=== PATIENT | female | born 1980 | race Caucasian/White ===

== ENCOUNTER 2023-01-31 14:27 | Emergency (ER) | payer OTHER, SELFPAY ==
--- NOTE | ~2023-01-31 | CT_ITS ---
EXAMINATION: CT thoracic spine wo con DATE: 01/31/2023 16:21 INDICATION: Upper back pain TECHNIQUE: Computed tomography (CT) of the thoracic spine was performed without intravenous contrast. The dose-length product (DLP) was 451.09 mGy-cm. Iterative reconstruction was used. COMPARISON: None FINDINGS: There is subtle irregularity in the anterior superior endplate of the T4 vertebral body. Th e vertebral body heights and alignment are maintained. The intervertebral disc spaces are normal. The prevertebral soft tissues are normal. IMPRESSION: 1. Subtle, age indeterminate anterior/superior endplate fracture of T4. Reviewed, dictated and finalized at location F. DRAWING MACHINE TENDER
--- NOTE | ~2023-01-31 | CT_ITS ---
EXAMINATION: CT brain wo con INDICATION: Head injury COMPARISON: None TECHNIQUE: Standard unenhanced head CT. The dose-length product (DLP) was 605.33 mGy-cm. The mA was a djusted according to patient size. Iterative reconstruction technique was employed. FINDINGS: There is no intracranial hemorrhage, acute infarction, or abnormal mass lesion. The ventric les are normal. There is no abnormal mass effect or midline shift. The de la vega-white matter differentiat ion is normal. The basal cisterns are patent. The orbits are normal. The paranasal sinuses, mastoids and calvarium are normal. IMPRESSION: 1. No acute intracranial abnormality. Reviewed, dictated and finalized at location F. T METAL CONTRACTOR
--- NOTE | ~2023-01-31 | CT_ITS ---
EXAMINATION: CT cervical spine wo con DATE: 01/31/2023 16:21 INDICATION: Neck and upper back pain TECHNIQUE: Computed tomography (CT) of the cervical spine was performed without intravenous contrast. The dose-length product (DLP) was 226.70 mGy-cm. Automated exposure control and iterative reconstruc tion technique were employed. COMPARISON: None FINDINGS: No fracture, dislocation, or subluxation. The vertebral body heights, alignment, and interv ertebral disc spaces are normal. The paravertebral soft tissues are unremarkable. The odontoid proces s is intact. IMPRESSION: 1. No acute osseous abnormality. Reviewed, dictated and finalized at location F. ING MACHINE CAN FEEDER
[2023-01-31 14:30] VITALS: BP 136/72; PULSE 55; RESP 18; TEMP 36.4; O2SAT 100
--- NOTE | 2023-01-31 17:14 | ED.FALL ---
HPI - Fall General Chief Complaint: Fall Stated Complaint: fall/back / hi Time Seen by Provider: 01/31/23 17:09 Source: patient Mode of arrival: ambulatory Limitations: no limitations History of Present Illness HPI Narrative: Patient is a 42 y/o female who presents to the ED with c/o fall. Patient reports she was attempting to run into the garage to grab something before leaving her house. Patient had a hat on and did not see the garage door closing down. She ran into the door, hitting her head and face and falling backwards, landing flat on her back with her back against the concrete ledge between her driveway and garage. Patient showed me a video of this on her home camera. She denied any LOC. She was able to get up off the ground after the fall. She complains of pain to her mid upper back between her shoulder blades. She denies any dizziness, lightheadedness, vision changes, nausea, vomiting, numbness, abdominal pain, chest pain, difficulty breathing. Patient took ibuprofen at 12pm. Related Data Allergies Allergy/AdvReac Type Severity Reaction Status Date / Time No Known Allergies Allergy Verified 01/31/23 18:24 Review of Systems Review of Systems: CONSTITUTIONAL: Denies fever, chills, or sweats. EYES: Denies visual changes. CARDIOVASCULAR: Denies chest pain. RESPIRATORY: Denies dyspnea. GASTROINTESTINAL: Denies abdominal pain, nausea, vomiting. MUSCULOSKELETAL: See HPI. NEUROLOGIC: See HPI. All systems reviewed & are unremarkable except as noted in HPI and below PMFSH Past Medical History Medical History Anxiety Hypothyroidism Surgical History Surgical History No pertinent past surgical history Social History Social History Smoking status: Never smoker Exam Narrative: GENERAL: Well appearing, well-nourished, non-toxic, in no acute distress. HEAD: Normocephalic, atraumatic. No contusions or wounds. EYES: PERRLA/EOMI, conjunctiva clear. NECK: Supple. No adenopathy, no masses. No significant midline or paraspinal muscle tenderness. RESPIRATORY: Airway patent, respirations nonlabored. Clear to auscultation bilaterally, no rales, rhonchi, wheezing. No splinting. CARDIOVASCULAR: Regular rate and rhythm without murmurs, rubs, or gallops. Peripheral pulses 2+ and equal bilaterally. ABDOMINAL: Soft, nontender, nondistended, no hepatosplenomegaly. Normoactive BS. MUSCULOSKELETAL: Moves all extremities. Strength/ROM intact without gross deformities. No tenderness along ribs. No significant lumbar midline spinal tenderness. Tenderness to palpation throughout midline thoracic spine and region from approximately T2-T6, between shoulder blades. No palpable deformities or step-offs. SKIN: Warm, dry, normal color. No rashes. NEURO: A&O X3. Speech clear. Cranial nerves II-XII grossly intact. Steady gait. No ataxic movements. No focal deficits. PSYCHIATRIC: Appropriate mood and affect. Normal interaction. Course Vital Signs Vital signs: Vital Signs Temperature 97.6 F 01/31/23 14:30 Pulse Rate 55 L 01/31/23 14:30 Respiratory Rate 18 01/31/23 14:30 Blood Pressure 136/72 01/31/23 14:30 Pulse Oximetry 100 01/31/23 14:30 Oxygen Delivery Room Air 01/31/23 14:30 Temperature 97.6 F 01/31/23 14:30 Pulse Rate 55 L 01/31/23 14:30 Respiratory Rate 18 01/31/23 14:30 Blood Pressure 136/72 01/31/23 14:30 Pulse Oximetry 100 01/31/23 14:30 Oxygen Delivery Room Air 01/31/23 14:30 MDM - Fall MDM Narrative Medical decision making narrative: Patient presented to ED with report of running into garage floor, head injury, back injury. Pain between shoulder blades. Patient's vital stable upon arrival. Neurologically intact. No focal deficits. Able to move all extremities. Sensation intact. CT scans of head
[2023-01-31] MEDS: HYDROcodone/acetaminophen (*CRX) 5-325 MG TABLET 1 TAB PO (17:51)
[2023-01-31] MEDS: KETOROLAC (*BKC) 60 MG/2 ML VIAL IM (17:51)
== END 2023-01-31 19:00 | disposition home or self-care (01) ==
PROVIDERS: Emergency Provider Physician Assistant; PCP Family Medicine
DX: S22.048A Other fracture of fourth thoracic vertebra, initial encounter for closed fracture (principal); S09.90XA Unspecified injury of head, initial encounter; F41.9 Anxiety disorder, unspecified; E03.9 Hypothyroidism, unspecified; W18.09XA Striking against other object with subsequent fall, initial encounter
CPT/HCPCS: 70450; 72125; 72128; 81025; 99284; A9270; J1885

== ENCOUNTER 2023-03-19 14:12 | Outpatient (CLI) | payer OTHER, SELFPAY ==
--- NOTE | ~2023-03-19 | MM_ITS ---
EXAMINATION: MM scrn nathan implant BI w shanthi HISTORY: Screening mammogram TECHNIQUE: Craniocaudal and mediolateral oblique 3-D tomosynthesis images with implant displacement a nd synthetic 2-D images were generated. Craniocaudal and mediolateral oblique views of the breasts wi thout implant displacement were obtained using full field digital mammography. CAD analysis was submi tted and interpreted. COMPARISON: None, baseline BREAST PARENCHYMAL COMPOSITION: The breasts are heterogeneously dense, which may obscure small masses . FINDINGS: There is no evidence of suspicious mass, calcification, or architectural distortion to sugg est malignancy in either breast. IMPRESSION: 1. No mammographic evidence of malignancy. 2. Recommend routine screening mammography in one year. BI-RADS Category 1: Negative Reviewed, dictated and finalized at location A.
== END 2023-03-19 14:13 | disposition home or self-care (01) ==
PROVIDERS: PCP Family Medicine; Visit Provider Obstetrics & Gynecology
DX: Z12.31 Encounter for screening mammogram for malignant neoplasm of breast (principal)
CPT/HCPCS: 77063; 77067

== ENCOUNTER 2024-10-20 01:25 | Day surgery (SDC) | payer OTHER, SELFPAY ==
--- NOTE | 2024-10-12 18:25 | PC.NURSE ---
Report to the Outpatient Waiting Room, entrance under the green pavilion located off [facility], at time 1130 on date 10/20/24. Planned Procedure Time: 1330.? Time changes happen often and if your time is changed the preop area will call you the afternoon before. - You and your visitor will be asked to self-screen and do not enter if you have any COVID symptoms. Please call surgeon if you need to reschedule. - A mask is optional within the hospital at this time. Patients may have clear liquids (water, carbonated beverages, clear teas, apple juice) until 3 hours prior to surgery with a maximum of 20 ounces. - No food from midnight until time of surgery and no smoking. This includes no chewing gum, candy or mints. - Infants may have breast milk until 4 hours before surgery, infant formula 6 hours prior to surgery. - Children will be allowed to drink immediately following surgery.? If applicable, please bring a bottle or sippy cup to assist with drinking. Juice, water, soda, and popsicles are readily available.? For infants on formula, please bring formula the day of surgery.? Pacifiers are allowed. Take only the following medications with a SIP of water on the morning of surgery: bupropion, levothyroxine DO NOT STOP ANY OF YOUR OTHER PRESCRIPTION MEDICATIONS PRIOR TO SURGERY EXCEPT THE FOLLOWING Medications to discontinue per physician vitamins and supplements Date to take last dose 10/17/24 Please no make-up, nail nicaraguan, hairspray, perfume, deodorant, or body powder the day of surgery.? No jewelry (including any body piercings) or valuables the day of surgery, leave them at home.? Please take a shower or bath the night before, or the morning of, surgery with an antibacterial soap.? Wear comfortable, loose fitting clothing.? Children are encouraged to wear pajamas. - Jewelry must be removed prior to entering the operating room.? Rings and piercings that are not removed may be cut off. - The hospital will not accept responsibility for valuables.? - Please leave all valuables, including medications, at home the day of surgery. If you are going home after surgery, a licensed refrigerated company driver must drive you home.? - NO public transportation without another adult if you receive anesthesia. - We recommend that an adult stay with you for 24 hours following discharge. - We also recommend that you do not drive, make important decision, drink alcoholic beverages, or take any drugs that were not prescribed by your health care provider for at least 24 hours after your discharge time. For Pediatric surgeries, we recommend two adults accompany the child home. Follow any additional instructions given to you from your surgeon. Telephone instructions given to Patient- Catalina Foley and asked if any additional questions and then verbalized understanding. Patient advised to call surgeon office or pre surgery nurse liaison [phone] if any additional questions.
[2024-10-12 18:33] VITALS: BMI 25.1
--- NOTE | 2024-10-18 06:30 | PM.IMHP ---
H&P: HPI History of Present Illness Date/Time: 10/18/24 06:30 Chief Complaint: Be bleeding/dyspareunia/dysmenorrhea/enlarged uterus Narrative: 43-year-old multiparous female for hysterectomy bilateral salpingectomy secondary to heavy bleeding dysmenorrhea pelvic pain and enlarged uterus. Risks and benefits reviewed including not exclusive of , aspiration, bleeding, transfusion, perforation injury to bowel, bladder, ureters, or other internal organs with need for laparotomy. She received the ACOG handout hysterectomy. She all questions answered. She asked to proceed Review of Systems Review of Systems: CONSTITUTIONAL: Denies fever, chills, or sweats. EYES: Denies visual changes. CARDIOVASCULAR: Denies chest pain. RESPIRATORY: Denies dyspnea. GASTROINTESTINAL: Denies abdominal pain, nausea, vomiting. MUSCULOSKELETAL: See HPI. NEUROLOGIC: See HPI. All systems reviewed & are unremarkable except as noted in HPI and below PMFSH Past Medical History Medical History Anxiety Hypothyroidism Surgical History Surgical History No pertinent past surgical history Social History Social History Smoking status: Never smoker Alcohol intake: current Drinks per week: 4 Substance use: current Substance use type: marijuana Other substance usage details: gummies Lack of Transportation: No Lack of Food: Never True Current Housing: I Have Housing Concerned About Future Housing: No Difficulty Paying Gas/Electric Bills: No Difficulty Paying for Meds: No Currently Unemployed: No Education: Bachelor's Degree Difficulty w/ Childcare or Family Care: No Living arrangements: with family Occupation/Education: occupation Gender identity (if verbalized by the patient): Female Sexual Orientation (if Verbalized by the Patient): Straight or Heterosexual Spiritual care concerns: No Meds Home Medications and Allergies Home Medications Medication Instructions Recorded Confirmed Type levothyroxine 75 mcg tablet 75 mcg PO DAILY 06/17/23 10/12/24 History Daily Multivitamin 1 tab-cap PO DAILY 10/12/24 10/12/24 History bupropion HCl 150 mg 24 hr tablet, 150 mg PO DAILY 10/12/24 10/12/24 History extended release magnesium L-lactate 84 mg 168 mg PO BID 10/12/24 10/12/24 History tablet,extended release Allergies Allergy/AdvReac Type Severity Reaction Status Date / Time No Known Allergies Allergy Verified 10/12/24 18:13 Exam Const: General: cooperative, healthy appearing and comfortable Nutritional Appearance: average body habitus Orientation/consciousness: oriented to person, oriented to place and oriented to time HENMT: Head: normal to inspection Resp: Effort & Inspection: normal respiratory effort Cardio: Rate: regular rate Rhythm: regular rhythm Heart sounds: S1 normal heart sound present and S2 normal heart sound present GI: Inspection: normal to inspection : External Female Exam: normal external appearance Speculum Exam - Vagina: normal appearance of the vagina Speculum Exam - Cervix: normal appearance of the cervix (Second-degree prolapse) Bimanual exam- vagina & uterus: enlarged and Uterine tenderness Bimanual Exam- Adnexa, other: normal adnexae Assessment and Plan Assessment and plan (1) Pelvic pain: Code(s): R10.2 - Pelvic and perineal pain Status: Acute (2) Excessive bleeding: Code(s): R58 - Hemorrhage, not elsewhere classified Status: Acute (3) Enlarged uterus: Code(s): N85.2 - Hypertrophy of uterus Status: Acute Assessment and Plan: Proceed with robotic total vaginal hysterectomy and bilateral salpingectomy
[2024-10-20] VITALS (10 sets, daily range): BP systolic 105–134; BP diastolic 64–86; PULSE 60–88; RESP 12–20; TEMP 36.1–37.1; O2SAT 94–100; BMI 25.2
--- NOTE | 2024-10-20 06:50 | WPDHPUPDATE1 ---
History and Physical Update Update Date/Time: 10/20/24 06:50 History and Physical has been reviewed, including an updated exam of the patient. There are NO changes in the patient's condition. Risks, benefits, and alternatives have been discussed and questions answered. Patient agrees to proceed with procedure.
[2024-10-20] MEDS: LACTATED RINGERS 1,000 ML 30 ML IV CONT ×2 (10:00→11:47)
--- NOTE | 2024-10-20 10:04 | P.PNAN_ITS ---
Anes - Initial Pre Proc Eval Procedure: Operation Date: 10/20/24 11:30 Proposed Procedures p Robotic Assisted Total Vaginal Hysterectomy with Bilateral Salpingectomy - Pro Crespo MD Date/Time: 10/20/24 10:04 Surgeon: Pro Crespo MD Pre Op Diagnosis: Excessive Bleed, Pelvic Pain, Enlarged Uterus Patient Data Age: 43 Gender: F Height: 1.7 m Weight: 72.7 kg Allergies Allergy/AdvReac Type Severity Reaction Status Date / Time No Known Allergies Allergy Verified 10/12/24 18:13 Home Medications Medication Instructions Recorded Confirmed Type levothyroxine 75 mcg tablet 75 mcg PO DAILY 06/17/23 10/12/24 History Daily Multivitamin 1 tab-cap PO DAILY 10/12/24 10/12/24 History bupropion HCl 150 mg 24 hr tablet, 150 mg PO DAILY 10/12/24 10/12/24 History extended release magnesium L-lactate 84 mg 168 mg PO BID 10/12/24 10/12/24 History tablet,extended release hydrocodone 5 mg-acetaminophen 325 1 tablet PO Q4H PRN pain #20 tabs 10/20/24 Rx mg tablet Laboratory Tests 10/20/24 09:31 Beta HCG, Quant Pending Patient hx anesthesia problems: none Family hx anesthesia problems: none Results Review: All pre-operative results and documents have been reviewed as part of the pre- operative evaluation. [facility] Past Medical History Medical History Anxiety Hypothyroidism Surgical History Surgical History (Updated 10/20/24 @ 10:04 by Pro Green MD) H/O breast augmentation Social History Social History Smoking status: Never smoker Alcohol intake: current Drinks per week: 4 Substance use: current Substance use type: marijuana Other substance usage details: gummies Lack of Transportation: No Lack of Food: Never True Current Housing: I Have Housing Concerned About Future Housing: No Difficulty Paying Gas/Electric Bills: No Difficulty Paying for Meds: No Currently Unemployed: No Education: Bachelor's Degree Difficulty w/ Childcare or Family Care: No Living arrangements: with family Occupation/Education: occupation Gender identity (if verbalized by the patient): Female Sexual Orientation (if Verbalized by the Patient): Straight or Heterosexual Spiritual care concerns: No Anes - Eval Final PreProcedure Day of Procedure 10/20/24 10:04 Patient weight: normal Heart: regular rate and rhythm Lungs: clear to auscultation Airway: Mallampati scale class II Neurological: alert and oriented Last oral intake: >/= 8 hours ASA classification: II Emergent: no Anesthetic plan: proceed Anesthesia type and monitoring: general ETT and standard monitoring Results Review: All pre-operative results and documents have been reviewed as part of the pre- operative evaluation. Informed Consent: The patient's anesthetic plan and its attendant risks and benefits were discussed with the patient/family/POA. Questions were solicited and answers provided to the satisfaction of the patient/family/POA.
[2024-10-20] MEDS: SCOPOLAMINE 1 MG PATCH 1 PATCH TRANSDERM (10:23)
[2024-10-20] MEDS: KETOROLAC 15 MG/ML VIAL (*BKC) IV PUSH (10:23)
[2024-10-20] MEDS: ACETAMINOPHEN 500 MG TABLET 1000 MG PO ×3 (10:23→22:00)
[2024-10-20 10:29] LABS: Beta HCG Quantitative < 2.39 mIU/ML
[2024-10-20] MEDS: ceFAZolin 2 GM/D5W 50 ML 2 GM/50 ML BAG IVPB (10:36)
[2024-10-20 11:05] LABS: BEDSIDEPREGUCG Negative (Negative)
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
--- NOTE | 2024-10-20 11:42 | PM.DS ---
DS: Admitting Diagnosis Discharge Date 10/21/2024 Admitting Diagnosis enlarged uterus/ pelvic pain / excessive bleeding DS: Discharge Diagnosis Discharge Diagnosis (1) Enlarged uterus: Code(s): N85.2 - Hypertrophy of uterus Status: Acute (2) Excessive bleeding: Code(s): R58 - Hemorrhage, not elsewhere classified Status: Acute (3) Pelvic pain: Code(s): R10.2 - Pelvic and perineal pain Status: Acute DS: Summary Hospital Course Reason for hospitalization: patient was admitted on 10/20/2024 for robotic total vaginal hysterectomy and bilateral salpingectomy. Hospital Course: Patient's hospital course unremarkable. She remained afebrile. She was up, voiding without difficulty, eating regular diet, ambulating, generally without significant complaints. Time Spent with Patient Time attestation: Total time spent providing and/or coordinating discharge services: Exam Const: General: cooperative, healthy appearing, comfortable and average body habitus Orientation/consciousness: oriented to person, oriented to place and oriented to time Resp: Effort & Inspection: normal respiratory effort Cardio: Rate: regular rate Rhythm: regular rhythm Heart sounds: S1 normal heart sound present and S2 normal heart sound present GI: Inspection: normal to inspection and incision ( Wounds are clean dry and intact) DS: Data Data Completed and Pending Pending studies at discharge: Pending at discharge 10/20/24 11:22 Surgical [PTH] Routine Labs on day of discharge: Labs from last 24 hours 10/20/24 10/20/24 09:31 09:10 Beta HCG, Quant < 2.39 POC Urine HCG, Qual Negative Discharge Plan Discharge Patient Disposition: Home, Self-Care Stand Alone Forms: General Discharge Instructions Follow-up/Referrals: Pro Garcia MD [Physician] - Discharge Medications: New hydrocodone-acetaminophen 5-325 mg tablet 1 tablet PO Q4H PRN (Reason: pain) Qty: 20 0RF No Action levothyroxine 75 mcg tablet 75 mcg PO DAILY bupropion HCl 150 mg tablet extended release 24 hr 150 mg PO DAILY magnesium L-lactate 84 mg Tablet Extended Release 168 mg PO BID Rx Instructions: patient takes 2 tablets BID Daily Multivitamin 1 tab-cap PO DAILY
[2024-10-20] MEDS: fentaNYL CITRATE INJ (*CRX) 100 MCG/2 ML VIAL 25 MCG IV PUSH ×6 (12:06→12:53)
--- NOTE | 2024-10-20 13:13 | PC.NURSE ---
This patient, Catalina Foley, was received from PACU via bed on 10/20/24 at 1313. Patient/family oriented to unit policies and routines.
[2024-10-20] MEDS: SIMETHICONE 80 MG TAB.CHEW PO ×2 (13:47→16:03)
[2024-10-20] MEDS: oxyCODONE HCL (*CRX) 5 MG TAB IR 10 MG PO (13:48)
[2024-10-20] MEDS: DEXTROSE 5%/LACTATED RINGERS 1,000 ML 125 ML IV CONT (14:00)
[2024-10-20] MEDS: DOCUSATE SODIUM 100 MG CAPSULE PO (16:03)
[2024-10-20] MEDS: KETOROLAC 30 MG/ML VIAL (*BKC) IV PUSH ×2 (16:03→22:00)
[2024-10-21] MEDS: ACETAMINOPHEN 500 MG TABLET 1000 MG PO ×2 (04:00→09:40)
[2024-10-21] MEDS: KETOROLAC 30 MG/ML VIAL (*BKC) IV PUSH (04:00)
[2024-10-21 04:37] LABS: Basophils Absolute Auto 0.1 K/mm3 (0.0-0.1); Basophils Percent Auto 0.5 % (0.2-1.2); Eosinophils Absolute Auto 0.1 K/mm3 (0-0.3); Eosinophils Percent Auto 0.5 % (0-4.4); Hematocrit 35.9 % (37.0-47.0); Hemoglobin 12.3 g/dL (12.0-15.0); Immature Granulocyte Absolute 0.03 K/mm3 (0.00-0.031); Immature Granulocyte Percent A 0.3 % (0-0.5); Lymphocytes Absolute Auto 1.83 K/mm3 (0.9-3.2); Lymphocytes Percent Auto 18.5 % (18.3-44.2); Mean Corpuscular HGB Conc 34.3 g/dl (32-36); Mean Corpuscular Hemoglobin 31.8 pg (26-34); Mean Corpuscular Volume 92.8 fl (80-100); Monocytes Absolute Auto 0.5 K/mm3 (0.1-0.6); Neutrophils Absolute Auto 7.4 K/mm3 (1.3-6.7); Neutrophils Percent Auto 75.2 % (45.5-73.1); Platelet Count Result 236 k/mm3 (150-375); Red Blood Count 3.87 M/mm3 (4.2-5.4); Red Cell Distribution Width 12.5 % (11.5-14.5); White Blood Count 9.9 K/mm3 (4.5-10.0)
[2024-10-21 04:53] VITALS: BP 109/69; PULSE 84; RESP 20; TEMP 36.7; O2SAT 100
[2024-10-21 06:40] VITALS: BP 112/73; PULSE 73; RESP 16; TEMP 36.6; O2SAT 99
[2024-10-21] MEDS: oxyCODONE HCL (*CRX) 5 MG TAB IR PO (06:48)
--- NOTE | 2024-10-21 06:49 | P.PNAN_ITS ---
Anes - Prog Note Post-Op Date/Time: 10/21/24 06:49 Cardiovascular status: normal Respiratory status: normal Airway patency: baseline Mental status: baseline Post-Op hydration status: normal Vital Signs: Last Vital Signs Temp 98.0 F 10/21/24 04:53 Pulse 84 10/21/24 04:53 Resp 20 10/21/24 04:53 BP 109/69 10/21/24 04:53 Pulse Ox 100 10/21/24 04:53 O2 Del Method Room Air 10/21/24 04:53 O2 Flow Rate 8 10/20/24 12:15 Pain Score (VAS): 2 I/O: Intake & Output 10/20/24 10/20/24 10/21/24 15:59 23:59 07:59 Intake Total 850 400 Output Total 150 1400 Balance 850 250 -1400 Laboratory Tests 10/21/24 03:58 10/20/24 10/20/24 10/21/24 09:10 09:31 03:58 WBC 9.9 RBC 3.87 L Hgb 12.3 Hct 35.9 L MCV 92.8 MCH 31.8 MCHC 34.3 RDW 12.5 Plt Count 236 MPV 10.0 Immature Gran % (Auto) 0.3 Neut % (Auto) 75.2 H Lymph % (Auto) 18.5 [place] % (Auto) 5.0 Eos % (Auto) 0.5 Baso % (Auto) 0.5 Lymph # (Auto) 1.83 [place] # (Auto) 0.5 Eos # (Auto) 0.1 Baso # (Auto) 0.1 Abs Immat Gran (auto) 0.03 Absolute Neuts (auto) 7.4 H Absolute Nucleated RBC 0.000 Nucleated RBC % 0.0 Beta HCG, Quant < 2.39 POC Urine HCG, Qual Negative Post-procedural complaints: none (continues to wear scopolamine patch, reviewed instructions for wear & discarding safely) Patient Feedback: Patient satisfied with anesthetic care.
[2024-10-21] MEDS: DOCUSATE SODIUM 100 MG CAPSULE PO (09:39)
[2024-10-21] MEDS: ENOXAPARIN 40 MG/0.4 ML SYRINGE SUB-Q (09:39)
[2024-10-21] MEDS: SIMETHICONE 80 MG TAB.CHEW PO (09:39)
[2024-10-21] MEDS: IBUPROFEN 600 MG TABLET PO (09:40)
--- NOTE | 2024-10-21 11:10 | P.PNOB_ITS ---
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:Subj Post-Op Subjective Date/time seen: 10/21/24 11:10 Subjective: patient has no complaints, pain is well controlled and patient is tolerating oral intake Exam Narrative: inc c/d/i abdomen soft, nt, nd [employer] TRAFFIC MANAGER - PN: Obj Data Vital Signs Vital Signs: Vital Signs - 24 hr 10/20/24 11:47 10/20/24 12:00 10/20/24 12:15 Temperature 97.4 F L Pulse Rate 84 74 60 Respiratory Rate 12 16 14 Blood Pressure 123/77 134/86 116/68 Pulse Oximetry 100 100 100 Oxygen Delivery Simple Face Mask Simple Face Mask Simple Face Mask Oxygen Flow Rate 8 8 8 10/20/24 12:30 10/20/24 12:40 10/20/24 12:55 Temperature 97.0 F L Pulse Rate 61 78 80 Respiratory Rate 14 14 16 Blood Pressure 109/64 119/69 125/68 Pulse Oximetry 96 98 94 Oxygen Delivery Room Air Room Air Room Air Oxygen Flow Rate 10/20/24 13:20 10/20/24 16:30 10/20/24 21:34 Temperature 97.3 F L 98.2 F 98.8 F Pulse Rate 66 82 88 Respiratory Rate 18 16 20 Blood Pressure 127/85 122/76 105/73 Pulse Oximetry 97 99 99 Oxygen Delivery Oxygen Flow Rate 10/20/24 21:34 10/21/24 04:53 10/21/24 04:53 Temperature 98.0 F Pulse Rate 84 Respiratory Rate 20 Blood Pressure 109/69 Pulse Oximetry 100 Oxygen Delivery Room Air Room Air Oxygen Flow Rate Intake/Output Intake/Output: Intake & Output 10/18/24 10/19/24 10/20/24 10/21/24 23:59 23:59 23:59 23:59 Intake Total 1250 Output Total 150 1400 Balance 1100 -1400 Meds/Results Medications: Active Medications Generic Name Dose Route Start Last Admin Trade Name Freq PRN Reason Stop Dose Admin Acetaminophen 1,000 mg 10/20/24 13:08 10/21/24 09:40 Acetaminophen 500 Mg Tablet PO 1,000 mg Q6HR [facility] Administration Docusate Sodium 100 mg 10/20/24 17:00 10/21/24 09:39 Docusate Sodium 100 Mg Capsule PO 100 mg BID AYLA Administration Enoxaparin Sodium 40 mg 10/21/24 09:00 10/21/24 09:39 Enoxaparin 40 Mg/0.4 Ml Syringe SUB-Q 40 mg DAILY AYLA Administration Ibuprofen 600 mg 10/21/24 06:00 10/21/24 09:40 Ibuprofen 600 Mg Tablet PO 600 mg Q6HR AYLA Administration Naloxone HCl 0.1 mg 10/20/24 13:08 Naloxone Hcl 0.4 Mg/Ml Vial IV PUSH Q2M PRN Respiratory rate less than 10 Ondansetron HCl 4 mg 10/20/24 13:08 Ondansetron Inj 4 Mg/2 Ml Vial IV PUSH Q6H PRN Nausea And Vomiting Oxycodone HCl 5 mg 10/20/24 13:08 10/21/24 06:48 Oxycodone Hcl (*Crx) 5 Mg Tab Ir PO 5 mg Q4H PRN Administration Pain Rated 4-6 Oxycodone HCl 10 mg 10/20/24 13:08 10/20/24 13:48 Oxycodone Hcl (*Crx) 5 Mg Tab Ir PO 10 mg Q6H PRN Administration Pain Rated 7-10 Simethicone 80 mg 10/20/24 13:08 10/21/24 09:39 Simethicone 80 Mg Tab.Chew PO 80 mg TIDWM AYLA Administration Labs 10/21/24 03:58 Labs: Laboratory Results - last 24 hr 10/21/24 03:58 WBC 9.9 RBC 3.87 L Hgb 12.3 Hct 35.9 L MCV 92.8 MCH 31.8 MCHC 34.3 RDW 12.5 Plt Count 236 MPV 10.0 Immature Gran % (Auto) 0.3 Neut % (Auto) 75.2 H Lymph % (Auto) 18.5 [place] % (Auto) 5.0 Eos % (Auto) 0.5 Baso % (Auto) 0.5 Lymph # (Auto) 1.83 [place] # (Auto) 0.5 Eos # (Auto) 0.1 Baso # (Auto) 0.1 Abs Immat Gran (auto) 0.03 Absolute Neuts (auto) 7.4 H Absolute Nucleated RBC 0.000 Nucleated RBC % 0.0
== END 2024-10-21 11:27 | disposition home or self-care (01) ==
LOC: ANHSURGERY 13:02 → ANHOB2 13:19
PROVIDERS: Anesthesiology; PCP Family Medicine; Visit Provider Obstetrics & Gynecology
PROC: (CPT 58552; principal; 2024-10-20 11:30)
DX: D25.1 Intramural leiomyoma of uterus (principal); N83.201 Unspecified ovarian cyst, right side; N93.9 Abnormal uterine and vaginal bleeding, unspecified; N88.8 Other specified noninflammatory disorders of cervix uteri; N72 Inflammatory disease of cervix uteri; E03.9 Hypothyroidism, unspecified; F41.9 Anxiety disorder, unspecified; F12.90 Cannabis use, unspecified, uncomplicated
CPT/HCPCS: 58552; 58662; S2900; 36415; 84702; 85025; 88307; 99199; A9270; J0690; J1100; J1171; J1650; J1885; J2003; J2250; J2405; J2704; J3010; J7030; J7120; J7121

== ENCOUNTER 2024-10-20 07:24 | Outpatient (CLI) | payer OTHER, SELFPAY ==
[2024-10-20 07:47] LABS: Basophils Absolute Auto 0.1 K/mm3 (0.0-0.1); Basophils Percent Auto 1.3 % (0.2-1.2); Eosinophils Absolute Auto 0.1 K/mm3 (0-0.3); Eosinophils Percent Auto 1.5 % (0-4.4); Hematocrit 39.7 % (37.0-47.0); Hemoglobin 13.5 g/dL (12.0-15.0); Immature Granulocyte Absolute 0.01 K/mm3 (0.00-0.031); Immature Granulocyte Percent A 0.2 % (0-0.5); Lymphocytes Percent Auto 26.9 % (18.3-44.2); Mean Corpuscular Hemoglobin 31.5 pg (26-34); Mean Corpuscular Volume 92.8 fl (80-100); Mean Platelet Volume 9.6 fl (7.4-10.4); Monocytes Absolute Auto 0.4 K/mm3 (0.1-0.6); Monocytes Percent Auto 7.3 % (2.6-8.5); Neutrophils Absolute Auto 3.3 K/mm3 (1.3-6.7); Neutrophils Percent Auto 62.8 % (45.5-73.1); Platelet Count Result 257 k/mm3 (150-375); Red Blood Count 4.28 M/mm3 (4.2-5.4); Red Cell Distribution Width 12.7 % (11.5-14.5); White Blood Count 5.2 K/mm3 (4.5-10.0)
== END 2024-10-20 07:25 | disposition home or self-care (01) ==
PROVIDERS: PCP Family Medicine; Visit Provider Obstetrics & Gynecology
DX: Z01.818 Encounter for other preprocedural examination (principal); R10.2 Pelvic and perineal pain; R58 Hemorrhage, not elsewhere classified
CPT/HCPCS: 36415; 85025; 86850; 86900; 86901